=== PATIENT | female | born 1970 | race Caucasian/White ===

== ENCOUNTER 2017-01-10 18:20 | Emergency (ER) | payer OTHER ==
[~2017-01-10] VITALS: Ht 172.7 cm; Wt 59.0 kg
[~2017-01-10 18:20] MED LIST: GABA600T PO; LAMO100 PO; LURA40 PO; TRAZ100T6 PO; ZOLO100T PO
[2017-01-10 18:22] VITALS: BP 125/77; PULSE 77; RESP 20; TEMP 99.2; O2SAT 99
[2017-01-10] MEDS ORDERED: CLINDAMYCIN 150 MG CAP PO ONE (19:00)
[2017-01-10] MEDS ORDERED: ACETAMINOPHEN/HYDROcodone 325 MG/5 MG TAB PO ONE (19:00)
--- NOTE | 2017-01-10 19:00 | PD ---
HPI Chief Complaint: Oral / Dental Pain or Problem Time Seen by Provider: 18:46 Travel History International Travel<30 days: No Contact w/Intl Traveler<30days: No Traveled to known affect area: No History of Present Illness HPI 46-year-old female presents to the emergency department for evaluation of dental pain that started yesterday. She states she has had some intermittent pain free while, but the pain worsened yesterday. She states that she popped an abscess in the back of her mouth. Patient denies any fevers or chills. She reports history of depression and anemia. She is currently on Zoloft. She denies any other complaints at this time. PFS Past Medical History Anemia: Yes Anxiety: Yes Depression: Yes Diminished Hearing: No Gastrointestinal Disorders: Yes GERD: Yes Psychiatric: Yes Respiratory: Yes ?: Not Menopausal: No : 6 Para: 5 Miscarriage: 1 : 1 Ectopic : No Ovarian Cysts: No Tubal Ligation: Yes (2008) Past Surgical History Abdominal Surgery: Yes (GASTRIC BYPASS-2006; ABD HERNIA) Cholecystectomy: Yes Hysterectomy: No Other Surgery: Yes (BREAST AUGMENTATION AND ABDOMINOPLASTY) Social History Alcohol Use: No Tobacco Use: Yes (1/2 PK/DAY) Substance Use: No Allergies-Medications (Allergen,Severity, Reaction): Coded Allergies: erythromycin base (Unverified Allergy, Severe, CHEST PAIN, SOB, 01/05/17) codeine (Unverified Adverse Reaction, Severe, N/V, 01/05/17) Reported Meds & Prescriptions Reported Meds & Active Scripts Active Gabapentin 600 Mg Tab 1,200 Mg PO TID Reported Trazodone (Trazodone HCl) 100 Mg Tablet 200 Mg PO HS Lamictal (Lamotrigine) 100 Mg Tab 100 Mg PO DAILY Zoloft (Sertraline HCl) 100 Mg Tab 200 Mg PO DAILY Latuda (Lurasidone) 40 Mg Tab 40 Mg PO DAILY Review of Systems Except as stated in HPI: all other systems reviewed are Neg Physical Exam Narrative GENERAL: Well-nourished, well-developed female patient, ambulatory. Afebrile. SKIN: Focused skin assessment warm/dry. HEAD: Normocephalic. Atraumatic. No facial swelling noted. ENT: Mucosa pink and moist. No erythema or exudates. No uvular edema. No uvular , palatal, or tonsillar deviation. Airway patent. Nasal turbinates appear normal without nasal blood, purulent drainage or septal hematoma. Bilateral tympanic membranes are clear without erythema or perforation. Patient has tenderness to back right upper gumline. No obvious fluctuance or drainage. No trismus. No Tommy angina. EYES: No scleral icterus. No injection or drainage. NECK: Supple, trachea midline. No JVD or lymphadenopathy. CARDIOVASCULAR: Regular rate and rhythm without murmurs, gallops, or rubs. RESPIRATORY: Breath sounds equal bilaterally. No accessory muscle use. Lungs sounds are clear to auscultation. GASTROINTESTINAL: Abdomen soft, non-tender, nondistended. MUSCULOSKELETAL: No cyanosis, or edema. BACK: Nontender without obvious deformity. No CVA tenderness. Data Data Last Documented VS Vital Signs Date Time Temp Pulse Resp B/P (MAP) Pulse Ox O2 Delivery O2 Flow Rate FiO2 01/10/17 18:22 99.2 77 20 125/77 (93) 99 Room Air Orders Orders Acetamin-Hydrocod 325-5 Mg ([place] 5-325 (01/10/17 19:00) Clindamycin (Cleocin) (01/10/17 19:00) [facility] Medical Decision Making Medical Screen Exam Complete: Yes Emergency Medical Condition: Yes Medical Record Reviewed: Yes Differential Diagnosis Dental abscess versus gingivitis versus dental caries Narrative Course 46-year-old female presents to the emergency department for evaluation of dental pain. Patient will be given Lortab 5/325 mg of clindamycin 300 mg by mouth. She'll be discharged with a prescription for ibuprofen and clindamycin. She states her is here to take her home. Patient is instructed to follow-up with a dentist. She is return here for any acute worsening of symptoms. She verbalizes agreement and understanding. Diagnosis Primary Impression: Dental abscess Referrals: Dentist call for appointment Patient Instructions: Dental Abscess (ED), General Instructions, Narcotic given in the ED Additional Instructions: Take antibiotic as instructed until gone. Ibuprofen as instructed as needed with food for pain. Peridex oral solution as directed. Follow-up with a dentist Return to the emergency department for any acute worsening of symptoms. Med/Other Pt SpecificInfo: Prescription(s) given Scripts Chlorhexidine Gluconate (Mouth) Liq (Peridex Liq) 0.12% Soln 15 ML SWISH-SPIT BID, #473 ML 0 Refills Prov: Trinity Medina 01/10/17 Clindamycin (Clindamycin) 150 Mg Cap 300 MG PO Q6H for Infection for 10 Days, CAP 0 Refills Prov: Trinity Medina 01/10/17 Ibuprofen (Ibuprofen) 600 Mg Tab 600 MG PO TID Y for PAIN SCALE 1 TO 10, #21 TAB 0 Refills Prov: Trinity Medina 01/10/17 Disposition: 01 DISCHARGE HOME Condition: Stable Trinity Medina Jan 10, 2017 19:00
[2017-01-10] MEDS ORDERED: CLIN1CAP5 PO (19:04)
[2017-01-10] MEDS ORDERED: IBUP-232 PO (19:04)
[2017-01-10] MEDS ORDERED: PERI0.126 SWISH-SPIT (19:05)
[2017-03-05] MEDS ORDERED: GABA600T PO (18:55)
== END 2017-01-10 19:28 | disposition home or self-care (01) ==
LOC: NEPD 18:20
DX: K04.7 Periapical abscess without sinus (principal); F17.200 Nicotine dependence, unspecified, uncomplicated
CPT/HCPCS: 99283

== ENCOUNTER 2017-02-10 17:51 | Emergency (ER) | payer OTHER ==
[~2017-02-10] VITALS: Ht 172.7 cm; Wt 63.0 kg
[~2017-02-10 17:51] MED LIST changes: +IBUP-232 PO
[2017-02-10 17:54] VITALS: BP 134/68; PULSE 62; RESP 18; TEMP 99.3; O2SAT 99
--- NOTE | 2017-02-10 18:00 | PD ---
HPI . dentalgia Chief Complaint: ENT Complaint Time Seen by Provider: 17:59 Travel History International Travel<30 days: No Contact w/Intl Traveler<30days: No Traveled to known affect area: No History of Present Illness HPI 46 year old female here with complaints of right upper wisdom tooth pain. Patient said she had extraction on February 06 and needs pain medication. She tells me that she has been dealing with pain all day, and decided to call the oral surgeon and was told that it's after hours and they will not fill any medications for her. She is taking antibiotics. She denies any fever or chills. Patient says she received 5 percocets on 02/06. PFSH Past Medical History Anemia: Yes Anxiety: Yes Depression: Yes Diminished Hearing: No Gastrointestinal Disorders: Yes GERD: Yes Psychiatric: Yes Respiratory: Yes ?: Unknown LMP: 817 Menopausal: No : 6 Para: 5 Miscarriage: 1 : 1 Ectopic : No Ovarian Cysts: No Tubal Ligation: Yes (2008) Past Surgical History Abdominal Surgery: Yes (GASTRIC BYPASS-2006; ABD HERNIA) Cholecystectomy: Yes Hysterectomy: No Other Surgery: Yes (BREAST AUGMENTATION AND ABDOMINOPLASTY) Social History Alcohol Use: No Tobacco Use: Yes (1/2 PK/DAY) Substance Use: No Allergies-Medications (Allergen,Severity, Reaction): Coded Allergies: erythromycin base (Unverified Allergy, Severe, CHEST PAIN, SOB, 02/02/17) codeine (Unverified Adverse Reaction, Severe, N/V, 02/02/17) Reported Meds & Prescriptions Reported Meds & Active Scripts Active Ibuprofen 600 Mg Tab 600 Mg PO TID PRN Gabapentin 600 Mg Tab 1,200 Mg PO TID Reported Trazodone (Trazodone HCl) 100 Mg Tablet 200 Mg PO HS Lamictal (Lamotrigine) 100 Mg Tab 100 Mg PO DAILY Zoloft (Sertraline HCl) 100 Mg Tab 200 Mg PO DAILY Latuda (Lurasidone) 40 Mg Tab 40 Mg PO DAILY Review of Systems General / Constitutional: No: Fever Eyes: No: Visual changes HENT: Positive: Dental Difficulties, No: Headaches Cardiovascular: No: Chest Pain or Discomfort Respiratory: No: Shortness of Breath Gastrointestinal: No: Abdominal Pain Genitourinary: No: Dysuria Musculoskeletal: No: Pain Skin: No Rash Neurologic: No: Weakness Psychiatric: No: Depression Endocrine: No: Polydipsia Hematologic/Lymphatic: No: Easy Bruising Physical Exam Narrative GENERAL: AAO x 3, no acute distress, Well-nourished, well-developed patient. SKIN: Warm and dry. No visible rashes or bruising. HEAD: Normocephalic and atraumatic. EYES: No scleral icterus. No injection or drainage. ENT: No nasal drainage noted. Mucous membranes pink. Airway patent. no appreciative dental abnormality NECK: Supple, trachea midline. No JVD. CARDIOVASCULAR: Regular rate and rhythm without murmurs, gallops, or rubs. RESPIRATORY: Breath sounds equal bilaterally. No accessory muscle use. No rhonchi or rales. GASTROINTESTINAL: visual inspection normal EXTREMITIES: No cyanosis or edema. BACK: No obvious deformity. NEURO: CN II-12 intact, PSYCH: AAO x 3, normal affect. Data Data Last Documented VS Vital Signs Date Time Temp Pulse Resp B/P (MAP) Pulse Ox O2 Delivery O2 Flow Rate FiO2 02/10/17 17:54 99.3 62 18 134/68 (90) 99 MDM Medical Decision Making Medical Screen Exam Complete: Yes Emergency Medical Condition: No Medical Record Reviewed: Yes Differential Diagnosis dentalgia, drug seeking behavior, opiate addiction Narrative Course A medical screening exam was performed: At the time of evaluation the presenting medical condition was determined not to be of an emergent nature. The patient was given the option of receiving additional care, but declined. Patient was given options for additional community resources from which to obtain care. The Patient Has Been advised to seek medical attention for their presenting complaint. The patient has been advised to return to the ER at any time if an emergent condition develops. I looked patient up in [facility] and she has filled multiple prescriptions for narcotic pain medication from different providers in a limited amount of time. I explained to her that I will not be able to fill her medications. Advised to contact oral surgeon. Diagnosis Primary Impression: Encounter for medical screening examination Condition: Marie Arroyo Feb 10, 2017 18:00
[2017-03-05] MEDS ORDERED: GABA600T PO (18:55)
== END 2017-02-10 18:12 | disposition left against medical advice (07) ==
LOC: NEPD 17:51
DX: K08.89 Other specified disorders of teeth and supporting structures (principal); F41.9 Anxiety disorder, unspecified; K21.9 Gastro-esophageal reflux disease without esophagitis; D64.9 Anemia, unspecified
CPT/HCPCS: 99281

== ENCOUNTER 2017-03-31 16:53 | Emergency (ER) | payer OTHER ==
[~2017-03-31 16:53] MED LIST changes: +BENZ100 PO; -IBUP-232 PO; +LEVO750T3 PO; +NAPR500T2 PO; +OXYC1TAB63 PO; +PRED50 PO; +TRAZ100T10 PO; -TRAZ100T6 PO; +VARE1PAK3 PO; +VARE1PAK5 PO
[2017-03-31 16:56] VITALS: BP 110/78; PULSE 65; RESP 16; TEMP 98.4; O2SAT 97
[2017-03-31 18:48] LABS: AUTOMATED NEUTROPHIL # 5.9 TH/MM3 (1.8-7.7); BASOPHIL % 0.4 % (0.0-2.0); EOSINOPHIL # 0.1 TH/MM3 (0-0.4); EOSINOPHIL % 0.8 % (0.0-4.0); HEMATOCRIT 36.9 % (35.0-46.0); LYMPH % 23.9 % (9.0-44.0); LYMPHOCYTE # 2.1 TH/MM3 (1.0-4.8); MEAN CELL VOLUME 86.2 FL (80.0-100.0); MEAN CORPUSCULAR HEMOGLOBIN 28.6 PG (27.0-34.0); MEAN CORPUSCULAR HGB CONC 33.2 % (32.0-36.0); MONO % 6.7 % (0.0-8.0); NEUT % 68.2 % (16.0-70.0); PLATELET COUNT 289 TH/MM3 (150-450); RED BLOOD COUNT 4.29 MIL/MM3 (4.00-5.30); RED CELL DISTRIBUTION WIDTH 23.4 % (11.6-17.2); WHITE BLOOD COUNT 8.7 TH/MM3 (4.0-11.0)
--- NOTE | 2017-03-31 18:50 | PD ---
HPI Chief Complaint: Abnormal Results Time Seen by Provider: 18:50 Travel History International Travel<30 days: No Contact w/Intl Traveler<30days: No Traveled to known affect area: No History of Present Illness HPI PT HAS HISTORY OF ANEMIA; GETS TRANSFUSIONS BY DR NINA. WAS HOSPITALIZED FOR A PNEUMONIA EARLIER THIS MONTH AND HAS NOT HAD A TRANSFUSION IS SUPPOSED TO HAVE ABLASION FOR UTERINE BLEEDING THIS WEEK AND PT FEELS LIKE HER BLOOD COUNT MAY BE LOW. PT WITH SHORTNESS OF BREATH AND PAIN WITH INSPIRATION SENSATION OF LIGHTHEADEDNESS AND FEELS TIRED PFSH Past Medical History Anemia: Yes Anxiety: Yes Depression: Yes Diminished Hearing: No Gastrointestinal Disorders: Yes GERD: Yes Psychiatric: Yes Respiratory: Yes Menopausal: No : 6 Para: 5 Miscarriage: 1 : 1 Ectopic : No Ovarian Cysts: No Tubal Ligation: Yes (2008) Past Surgical History Abdominal Surgery: Yes (GASTRIC BYPASS-2006; ABD HERNIA) Cholecystectomy: Yes Hysterectomy: No Other Surgery: Yes (BREAST AUGMENTATION AND ABDOMINOPLASTY) Social History Alcohol Use: No Tobacco Use: Yes (1 PK/DAY) Substance Use: No Allergies-Medications (Allergen,Severity, Reaction): Coded Allergies: erythromycin base (Unverified Allergy, Severe, CHEST PAIN, SOB, 03/24/17) codeine (Unverified Adverse Reaction, Severe, N/V, 03/24/17) Reported Meds & Prescriptions Reported Meds & Active Scripts Active Tessalon Perles (Benzonatate) 100 Mg Cap 200 Mg PO TID PRN Oxycodone-Acetaminophen 5-325 mg Tab 1 Tab PO Q6H PRN Naproxen 500 Mg Tab 500 Mg PO BID Prednisone 50 Mg Tab 50 Mg PO DAILY Chantix Continuing Month Dago (Varenicline) 1 Mg Dago 1 Mg PO BIDPC Chantix Starting Month Dago (Varenicline) 0.5 mg X 11 & 1 mg X 42 Pack 1 Tab PO DIRECTED Gabapentin 600 Mg Tab 1,200 Mg PO TID Reported Levofloxacin 750 Mg Tablet 750 Mg PO DAILY Trazodone (Trazodone HCl) 100 Mg Tablet 200 Mg PO HS Lamictal (Lamotrigine) 100 Mg Tab 100 Mg PO DAILY Zoloft (Sertraline HCl) 100 Mg Tab 200 Mg PO DAILY Latuda (Lurasidone) 40 Mg Tab 40 Mg PO DAILY Review of Systems Except as stated in HPI: all other systems reviewed are Neg Physical Exam Narrative GENERAL: Well-nourished, well-developed female patient, ambulatory and in no acute distress SKIN: Focused skin assessment warm/dry. HEAD: Normocephalic. EYES: No scleral icterus. No injection or drainage. NECK: Supple, trachea midline CARDIOVASCULAR: Regular rate RESPIRATORY: No accessory muscle use. GASTROINTESTINAL: Abdomen nondistended. MUSCULOSKELETAL: No cyanosis, or edema. BACK: without obvious deformity. Data Data Last Documented VS Vital Signs Date Time Temp Pulse Resp B/P (MAP) Pulse Ox O2 Delivery O2 Flow Rate FiO2 03/31/17 16:56 98.4 65 16 110/78 (89) 97 Orders Orders Complete Blood Count With Diff (03/31/17 17:23) Basic Metabolic Panel (Bmp) (03/31/17 17:23) Labs Laboratory Tests Test 03/31/17 18:20 White Blood Count 8.7 TH/MM3 Red Blood Count 4.29 MIL/MM3 Hemoglobin 12.3 GM/DL Hematocrit 36.9 % Mean Corpuscular Volume 86.2 FL Mean Corpuscular Hemoglobin 28.6 PG Mean Corpuscular Hemoglobin Concent 33.2 % Red Cell Distribution Width 23.4 % Platelet Count 289 TH/MM3 Mean Platelet Volume 7.7 FL Neutrophils (%) (Auto) 68.2 % Lymphocytes (%) (Auto) 23.9 % Monocytes (%) (Auto) 6.7 % Eosinophils (%) (Auto) 0.8 % Basophils (%) (Auto) 0.4 % Neutrophils # (Auto) 5.9 TH/MM3 Lymphocytes # (Auto) 2.1 TH/MM3 Monocytes # (Auto) 0.6 TH/MM3 Eosinophils # (Auto) 0.1 TH/MM3 Basophils # (Auto) 0.0 TH/MM3 CBC Comment AUTO DIFF Differential Comment FINAL DIFF MANUAL Platelet Estimate NORMAL Platelet Morphology Comment NORMAL Ovalocytes 1+ Acanthocytes OCC Blood Urea Nitrogen 14 MG/DL Creatinine 0.96 MG/DL Random Glucose 86 MG/DL Calcium Level 8.5 MG/DL Sodium Level 135 MEQ/L Potassium Level 4.0 MEQ/L Chloride Level 100 MEQ/L Carbon Dioxide Level 29.9 MEQ/L Anion Gap 5 MEQ/L Estimat Glomerular Filtration Rate 62 ML/MIN MDM Medical Decision Making Medical Screen Exam Complete: Yes Emergency Medical Condition: Yes Medical Record Reviewed: Yes Differential Diagnosis Anemia versus pneumonia versus costochondritis Narrative Course AMA: The risks of leaving against medical advice without further evaluation treatment were discussed with the patient. These risks include cardiac dysfunction, cardiac dysrhythmia, possible heart attack, possible stroke or . The patient indicated understanding of these risks and appeared to have the capacity to make this decision. Diagnosis Primary Impression: Fatigue Qualified Codes: R53.83 - Other fatigue Disposition: 07 AGAINST MEDICAL ADVICE Condition: Stable Kelley Clark Mar 31, 2017 18:50
[2017-03-31 18:56] LABS: HEMO FLAGS AUTO DIFF
[2017-03-31 18:58] LABS: BICARBONATE 29.9 MEQ/L (21.0-32.0)
[2017-03-31 20:14] LABS: ACANTHOCYTES OCC (NORMAL); OVALOCYTES 1+ (NORMAL); PLATELET ESTIMATE SMEAR NORMAL (NORMAL); PLATELET MORPHOLOGY NORMAL (NORMAL); SCAN/DIFF FINAL DIFF MANUAL
== END 2017-03-31 18:50 | disposition left against medical advice (07) ==
LOC: NED 18:45
DX: R53.83 Other fatigue (principal); R06.02 Shortness of breath; R42 Dizziness and giddiness; D64.9 Anemia, unspecified; F41.9 Anxiety disorder, unspecified; F32.9 Major depressive disorder, single episode, unspecified; K21.9 Gastro-esophageal reflux disease without esophagitis; F17.200 Nicotine dependence, unspecified, uncomplicated; Z79.899 Other long term (current) drug therapy
CPT/HCPCS: 80048; 85007; 85027; 99283

== ENCOUNTER 2018-02-17 17:31 | Observation (INO) ==
[2018-02-17] MEDS ORDERED: Ketorolac Inj 30 MG/ML (IVP) Vial IV.PUSH ONE (18:43)
[2018-02-17 19:28] LABS: Baso % (Auto) 0.8 % (0.0-2.0); Eos # (Auto) 0.1 th/mm3 (0.0-0.4); Eos % (Auto) 2.4 % (0.0-4.0); Hematocrit 39.4 % (35.0-46.0); Hemoglobin 13.6 gm/dL (11.6-15.3); Lymph # (Auto) 1.6 th/mm3 (1.0-4.8); Lymph % (Auto) 29.9 % (9.0-44.0); Mean Corpuscular HGB Conc 34.5 % (32.0-36.0); Mean Corpuscular Hemoglobin 33.9 pg (27.0-34.0); Mean Corpuscular Volume 98.2 fL (80.0-100.0); Mean Platelet Volume 8.4 fL (7.0-11.0); Mono # (Auto) 0.5 th/mm3 (0.0-0.9); Mono % (Auto) 8.7 % (0.0-8.0); Neut # (Auto) 3.3 th/mm3 (1.8-7.7); Neut % (Auto) 58.2 % (16.0-70.0); Platelet Count 220 th/mm3 (150-450); Red Blood Count 4.01 mil/mm3 (4.00-5.30); Red Cell Distribution Width 11.9 % (11.6-17.2); White Blood Count 5.5 th/mm3 (4.0-11.0)
[2018-02-17 19:32] VITALS: RESP 16
--- NOTE | 2018-02-17 19:35 | CT ---
EXAM DATE: 02/17/2018 6:55 PM EDT AGE/SEX: 48 years / Female INDICATIONS: Left chest pain. History of pneumonia. CLINICAL DATA: This is the patient's initial encounter. Patient reports that signs and symptoms have been present for 1 week and indicates a pain score of 4/10. MEDICAL/SURGICAL HISTORY: None. Cholecystectomy. Gastric bypass. RADIATION DOSE: 6.22 CTDI (mGy) COMPARISON: [facility], CT ABDOMEN & PELVIS W CONTRAST, 09/10/2011. . TECHNIQUE: Multiple contiguous axial images were obtained through the chest without contrast. Image s were obtained in suspended respiration using multiple row detector helical technique. Using automa gui exposure control and adjustment of the mA and/or kV according to patient size, radiation dose was kept as low as reasonably achievable to obtain optimal diagnostic quality images. DICOM format imag e data is available electronically for review and comparison. FINDINGS: There is trace atelectasis and scarring of the lingular division of the left upper lobe. Mild tree-in -bud type infiltrates seen laterally in the right and left midlungs. The lungs otherwise appear clear . No pleural effusion. No pneumothorax. Noncontrast appearance of the heart and mediastinum within normal limits. No lymphadenopathy demonstr ated. No acute bony abnormality seen. CONCLUSION: 1. Trace lingular atelectasis and scarring. 2. Minimal infectious or inflammatory appearing tree-in-bud type parenchymal opacities of the bilate ral mid lungs. 3. No lymphadenopathy demonstrated. Electronically signed by: Williams Hong MD 02/17/2018 7:34 PM EDT
[2018-02-17 19:36] LABS: Chloride 103 meq/L (98-107); Sodium 138 meq/L (136-145)
[2018-02-17 19:39] LABS: Calcium 8.2 mg/dL (8.5-10.1)
[2018-02-17 19:40] LABS: Albumin 3.7 g/dL (3.4-5.0); Anion Gap 8 meq/L (5-15); Blood Urea Nitrogen 14 mg/dL (7-18); Carbon Dioxide 27.5 meq/L (21.0-32.0); Glucose,Random 95 mg/dL (74-106)
[2018-02-17 19:43] LABS: Alanine Aminotransferase 63 U/L (10-53); Aspartate Aminotransferase 29 U/L (15-37); Glomerular Filtration Rate 72 mL/min (>89)
[2018-02-17 19:44] LABS: Total Protein 6.7 g/dL (6.4-8.2)
[2018-02-17 19:45] LABS: Alkaline Phosphatase 119 U/L (45-117)
--- NOTE | 2018-02-17 20:30 | ED ---
HPI General Chief complaint: Respiratory Symptoms Stated complaint: Pain Around Ribs Time Seen by Provider: 02/17/18 18:16 Source: patient Mode of arrival: ambulatory Limitations: no limitations History of Present Illness HPI narrative: Patient is a 48-year-old female who comes in complaining of pain to her lower chest. This is her third visit to the hospital for this. She was seen here a little over 2 weeks ago and was discharged with Augmentin. She says she went to an outside hospital Thursday and was told she had bilateral pneumonia and was discharged with azithromycin. She says that she completed the antibiotics and her pain seems to be worse. She says she has had this pain in the past associated with pneumonia, so she is worried that the pneumonia is gotten worse. She denies fever chills. She has had a cough. She says she has been taking ibuprofen and Motrin for the pain without relief. Severity is mild to moderate. Related Data Home Medications Medication Instructions Recorded Confirmed escitalopram oxalate [Lexapro] 20 mg PO DAILY 01/25/18 02/17/18 trazodone 50 mg PO DAILY 01/25/18 02/17/18 Previous Rx's Medication Instructions Recorded albuterol sulfate 2 inh INHALATION Q4H PRN #6.7 g 12/31/17 naproxen 500 mg PO Q12H PRN #14 tab 01/26/18 Allergies Allergy/AdvReac Type Severity Reaction Status Date / Time erythromycin base Allergy Severe CHEST Verified 02/17/18 18:06 PAIN, SOB codeine AdvReac Severe N/V Verified 02/17/18 18:06 Review of Systems ROS: all other systems reviewed are negative Constitutional Denies chills and Denies fever(s) ENT Denies dizziness Cardiovascular Reports chest pain Respiratory Reports cough Gastrointestinal Denies nausea and Denies vomiting Musculoskeletal Denies myalgias and Denies arthralgias Integumentary/Breasts Denies rash and Denies wounds Neurologic Denies frequent falls, Denies focal weakness and Denies numbness [facility] Medical History Medical History Anemia (Acute) Cholecystectomy planned (Acute) Depression (Acute) History of bleeding ulcers (Acute) Hx of insomnia (Acute) Hx of iron deficiency (Acute) Pneumonia (Acute) Surgical History Surgical History History of mandibular surgery (Acute) Hx of breast augmentation (Acute) Hx of cholecystectomy (Acute) Hx of gastric bypass (Acute) Hx of hernia repair (Acute) Hx of tubal ligation (Acute) Social History Social History Substance History: No History of Abuse Second Hand Smoke Exposure: No Smoking Status: Current every day smoker Tobacco Type: Cigarettes How Often Do You Have a Drink Containing Alcohol: Never Recent Travel in [facility] within the Last 8 Weeks: No Recent Out of Country Travel within the Last 8 Weeks: No Immunization History Tetanus Immunization: >5 Years Hx Influenza Vaccine This Season: No Exam Narrative Exam Narrative: GENERAL: Awake and alert, no acute distress. SKIN: Focused skin assessment warm/dry. No wounds or signs of infection. HEAD: Atraumatic. Normocephalic. EYES: Pupils equal and round. No scleral icterus. ENT: Mucous membranes pink and moist. NECK: Trachea midline. No JVD. CARDIOVASCULAR: Regular rate and rhythm. No murmur appreciated. RESPIRATORY: No accessory muscle use. Wheezing at both lung bases. Breath sounds equal bilaterally. GASTROINTESTINAL: Abdomen soft, non-tender, nondistended. MUSCULOSKELETAL: No obvious deformities. No clubbing. No cyanosis. No edema. NEUROLOGICAL: Awake and alert. No obvious cranial nerve deficits. Motor grossly within normal limits. Normal speech. PSYCHIATRIC: Appropriate mood and affect; insight and judgment normal. Course Initial Documented Vital Signs Temperature 99.3 F 02/17/18 18:02 Pulse Rate 64 02/17/18 18:02 Respiratory Rate 18 02/17/18 18:02 Blood Pressure 113/60 02/17/18 18:02 Pulse Oximetry 99 02/17/18 18:02 Last Documented Vital Signs Temperature 99.3 F 02/17/18 18:02 Pulse Rate 53 L 02/17/18 20:51 Respiratory Rate 16 02/17/18 20:51 Blood Pressure 113/71 02/17/18 20:51 Pulse Oximetry 99 02/17/18 20:51 Medical Decision Making MDM Narrative Medical decision making narrative: Patient is a 48-year-old female who comes in complaining of chest pain. She says it feels like when she has pneumonia. IV established, labs sent. Labs show no acute abnormal. CT of the chest shows bilateral tree in bud infiltrates. Patient has had 2 rounds of oral antibiotics at home. Thus I feel she would benefit from admission. Given Rocephin and Levaquin. Placed in observation for further management. Medical Screen Exam Complete: Yes Emergency Medical Condition: Yes Differential Diagnosis Differential Diagnosis: Pneumonia versus costochondritis versus URI Medical Records Medical records reviewed: Yes I reviewed the patient's medical records. Lab Data Lab results reviewed: Yes I reviewed the patient's lab results. Result diagrams: 02/17/18 19:24 02/17/18 19:24 Lab Results 02/17/18 02/17/18 02/17/18 Range/Units 19:24 19:24 19:24 CBC w Diff Auto diff final WBC 5.5 (4.0-11.0) th/mm3 RBC 4.01 (4.00-5.30) mil/mm3 Hgb 13.6 (11.6-15.3) gm/dL Hct 39.4 (35.0-46.0) % MCV 98.2 (80.0-100.0) fL MCH 33.9 (27.0-34.0) pg MCHC 34.5 (32.0-36.0) % RDW 11.9 (11.6-17.2) % Plt Count 220 (150-450) th/mm3 MPV 8.4 (7.0-11.0) fL Neut % (Auto) 58.2 (16.0-70.0) % Lymph % (Auto) 29.9 (9.0-44.0) % Boundary % (Auto) 8.7 H (0.0-8.0) % Eos % (Auto) 2.4 (0.0-4.0) % Baso % (Auto) 0.8 (0.0-2.0) % Neut # (Auto) 3.3 (1.8-7.7) th/mm3 Lymph # (Auto) 1.6 (1.0-4.8) th/mm3 Boundary # (Auto) 0.5 (0.0-0.9) th/mm3 Eos # (Auto) 0.1 (0.0-0.4) th/mm3 Baso # (Auto) 0.0 (0.0-0.2) th/mm3 WBC Differential . Differential Comment . Sodium 138 (136-145) meq/L Potassium 4.0 (3.5-5.1) meq/L Chloride 103 (98-107) meq/L Carbon Dioxide 27.5 (21.0-32.0) meq/L Anion Gap 8 (5-15) meq/L BUN 14 (7-18) mg/dL Creatinine 0.84 (0.50-1.00) mg/dL Estimated GFR 72 L (>89) mL/min Random Glucose 95 (74-106) mg/dL Calcium 8.2 L (8.5-10.1) mg/dL Total Bilirubin 0.3 (0.2-1.0) mg/dL AST 29 (15-37) U/L ALT 63 H (10-53) U/L Alkaline Phosphatase 119 H (45-117) U/L Troponin I Less than 0.02 L (0.02-0.05) ng/mL Total Protein 6.7 (6.4-8.2) g/dL Albumin 3.7 (3.4-5.0) g/dL Lipase 155 (73-393) U/L Imaging Data Radiologist's impression: Chest CT 02/17/18 18:43 CONCLUSION: 1. Trace lingular atelectasis and scarring. 2. Minimal infectious or inflammatory appearing tree-in-bud type parenchymal opacities of the bilateral mid lungs. 3. No lymphadenopathy demonstrated. ECG Data EKG Prior to Arrival: No Attestation: I personally reviewed and interpreted this ECG as follows: Interpretation: ECG shows sinus bradycardia at a rate of 51, no ST elevation or depression, normal intervals Discharge Plan Discharge Disposition Patient Disposition: 30 Still Patient Discharge Condition Condition: Stable Discharge Details Diagnosis: Pneumonia Physicians Team ED Provider: Fátima Ponce Primary Care Provider: Javy Bruno Attending Provider: Ga Casanova Discharge Interventions Interventions: Vital Signs Last Done: 02/17/18 19:31 Status ED Status: Admitted Observation Patient
[2018-02-17] MEDS ORDERED: Ketorolac Inj 30 MG/ML (IVP) Vial IV.PUSH PRN (20:36)
[2018-02-17] MEDS ORDERED: Tuberculin PPD 5 UNITS/0.1 ML Syringe I-DERMAL ONE (21:00)
[2018-02-17] MEDS ORDERED: Temazepam 15 MG Capsule PO PRN (21:00)
[2018-02-17] MEDS ORDERED: traZODone 50 MG Tablet PO SCH ×2 (21:00→23:30)
[2018-02-17] MEDS: Heparin - SQ 10,000 UNITS/ML Vial SQ SCH (21:24)
[2018-02-18 07:03] LABS: Chloride 108 meq/L (98-107); Sodium 143 meq/L (136-145)
[2018-02-18 07:07] LABS: Calcium 7.8 mg/dL (8.5-10.1)
[2018-02-18 07:12] LABS: Alanine Aminotransferase 52 U/L (10-53); Anion Gap 6 meq/L (5-15); Aspartate Aminotransferase 22 U/L (15-37); Blood Urea Nitrogen 18 mg/dL (7-18); Carbon Dioxide 28.7 meq/L (21.0-32.0); Glomerular Filtration Rate 73 mL/min (>89); Glucose,Random 85 mg/dL (74-106)
[2018-02-18 07:27] LABS: Alkaline Phosphatase 108 U/L (45-117); Total Protein 5.9 g/dL (6.4-8.2)
--- NOTE | 2018-02-18 08:03 | P.HP ---
History of Present Illness Service: [facility] adult med Primary Care Physician: Javy Bruno Chief Complaint: cough, chest pain with deep inspiration History of Present Illness: Patient is a 48-year-old female chronic smoker with questionable history of COPD who comes in complaining of pain to her lower chest. This is her third visit to the hospital for this recently. She was seen here a little over 2 weeks ago and was discharged with Augmentin. She says she went to an outside hospital this past and was told she had bilateral pneumonia and was discharged with azithromycin. She reports that the azithromycin actually helped but when her course was done symptoms returned. She says that she completed the antibiotics and her pain seems to be worse. She says she has had this pain in the past associated with pneumonia, so she is worried that the pneumonia is gotten worse. She reports that she has had an episode of pneumonia every year for approximately the last 7 years with multiple episodes requiring admission. She reports that she had to stay in the hospital up to 1 week for sepsis in the past from pneumonia. She reports she has not seen an outside principal embedded software engineer. She has had no hemoptysis or hematemesis. She denies any night sweats or recent weight loss. 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 She has not traveled recently and has not been in contact with anyone with a known infectious disease specifically tuberculosis. She denies fever chills. She has had a cough. She says she has been taking ibuprofen and Motrin for the pain without relief. Severity is mild to moderate. It is noted the patient is in recovery from chronic opiate use. She had previously engaged in IV drug abuse but has not done that in several years. Her drug of choice for IV drugs was Dilaudid. Her last use was apparently over a year ago and she attends Narcotics Anonymous meetings daily. She has been afebrile here with good oxygen saturation maintenance on room air. CT chest did reveal some tree-in- bud appearance inflammatory versus infectious changes in bilateral mid lungs. There was no significant lymphadenopathy noted on CT scan. SH She smokes 1 pack/day of cigarettes and has done so for approximately 30 years No alcohol in several years but previously did drink heavily at times Has history of substance abuse and previously had been on various opiates and cocaine. She had also used IV Dilaudid in the past. She reportedly has been in recovery for over the last year and has not done any illicit drugs at that time. She does attend Narcotics Anonymous regularly. 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 ALL: She has no true drug allergies but has had some difficulties with erythromycin and some nausea with codeine. She is also had trouble with GI upset on doxycycline. Notably she has tolerated azithromycin fine on several occasions including last week. - Diagnosis (1) Pneumonia (2) Substance abuse in remission (3) Bipolar 1 disorder, depressed, partial remission Review of Systems Constitutional: Denies anorexia, Denies body ache(s), Denies chills, Denies daytime sleepiness, Denies excessive sweating, Denies fatigue, Denies fever(s), Denies headache(s), Denies increased appetite, Denies lack of energy, Denies malaise, Denies night sweats, Denies weakness, Denies weight gain, Denies weight loss, Denies other Eyes: Denies blind spots, Denies blurry vision, Denies bulging eyes, Denies change in vision, Denies double vision, Denies discharge, Denies dry eyes, Denies floaters, Denies irritation, Denies itchy eyes, Denies loss of vision, Denies pain, Denies requires corrective lenses, Denies sensitivity to light, Denies other Ears, Nose, Mouth, and Throat: Denies abnormal hearing, Denies bleeding gums, Denies bad breath, Denies change in voice, Denies dental pain, Denies difficulty swallowing, Denies dizziness, Denies dry mouth, Denies ear discharge , Denies ear pain, Denies facial pain, Denies headache(s), Denies hearing loss, Denies hoarseness, Denies lip swelling, Denies nosebleed, Denies mouth lesions, Denies mouth pain, Denies nasal congestion, Denies nasal discharge, Denies nasal obstruction, Denies nasal trauma, Denies neck lump, Denies neck pain, Denies nose pain, Denies pain with swallowing, Denies poor balance, Denies post nasal drip, Denies ringing in the ears, Denies sinus pain, Denies sinus pressure , Denies sore throat, Denies throat swelling, Denies tongue swelling, Denies other Cardiovascular: Reports chest pain, Reports chest pain at rest, Denies chest pain with activity, Denies excessive sweating, Denies fainting, Denies fast heart rate, Denies foot swelling, Denies generalized swelling, Denies irregular heart rhythm, Denies leg pain with activity, Denies leg sores, Denies leg swelling, Denies lightheadedness, Denies radiating jaw, neck or arm pain, Denies rapid, pounding, or irregular heartbeat, Denies shortness of breath, Denies shortness of breath with activity, Denies shortness of breath when lying down, Denies shortness of breath causing sudden awakening, Denies slow heart rate, Denies other Respiratory: Reports chest congestion, Reports cough, Reports pain on inspiration, Reports pain with cough, Denies change in phlegm color, Denies coughing up blood, Denies excessive phlegm production, Denies shortness of breath, Denies shortness of breath with activity, Denies snoring, Denies stridor , Denies wheezing, Denies other Gastrointestinal: Denies abdominal pain, Denies belching, Denies black, tarry stools, Denies bloating, Denies bright, red blood in stools, Denies change in bowel habits, Denies constant urge to pass stool, Denies change in stools, Denies coffee ground vomit, Denies constipation, Denies cramping, Denies difficulty swallowing, Denies excessive passing of gas, Denies feeling full early, Denies heartburn, Denies incontinent of stools, Denies loose stools, Denies nausea, Denies pain with swallowing, Denies vomiting, Denies vomiting blood, Denies other Skin/Breast: Denies acne, Denies bleeding lesions, Denies boil, Denies breast swelling, Denies breast skin changes, Denies breast pain, Denies breast lump, Denies change in breast shape, Denies change in hair, Denies change in skin color, Denies changing lesions, Denies dry skin, Denies excessive hair growth, Denies hair loss, Denies itching, Denies lesions, Denies nail changes, Denies new lesions, Denies nipple discharge, Denies non-healing lesions, Denies redness , Denies sensitivity to light, Denies rash, Denies skin pain, Denies skin ulcer , Denies sores, Denies stretch hatch, Denies unusual bruising, Denies wounds, Denies yellowing of the skin, Denies other Neurologic: Denies abnormal hearing, Denies abnormal movements, Denies abnormal speech, Denies abnormal walking, Denies behavioral changes, Denies burning sensations, Denies confusion, Denies dizziness, Denies fainting, Denies frequent falls, Denies headache(s), Denies lack of coordination, Denies localized weakness, Denies loss of vision, Denies memory loss, Denies numbness, Denies other visual disturbances, Denies radiating pain, Denies restless legs, Denies convulsions, Denies seizure-like activity, Denies sensory deficit, Denies tingling, Denies tingling/numbness/burning sensations, Denies tremor(s), Denies unsteadiness, Denies weakness, Denies other Psychiatric: Reports anxiety Allergic/Immunologic: Reports GI upset with certain foods PMFSH - History History Provided By: Patient - Medical History Medical History: Medical History (Last Updated 02/18/18 @ 07:59 by Ga Casanova MD, PhD) Bipolar 1 disorder, depressed, partial remission (Acute) Pneumonia (Acute) Anemia Depression History of bleeding ulcers Hx of insomnia Hx of iron deficiency - Surgical History Surgical History: Surgical History (Last Reviewed 02/17/18 @ 21:11 by Fátima Ponce MD) History of mandibular surgery Hx of breast augmentation Hx of cholecystectomy Hx of gastric bypass Hx of hernia repair Hx of tubal ligation - Family History Family History: Family History (Last Updated 02/18/18 @ 07:52 by Ga Casanova MD, PhD) Mother COPD (chronic obstructive pulmonary disease) - Tobacco History Second Hand Smoke Exposure: No Tobacco Use In Past 30 Days: Yes Smoking Status: Current every day smoker Tobacco Type: Cigarettes Cigarettes Per Day: 20 Years Smoked: 30 - Alcohol History How Often Do You Have a Drink Containing Alcohol: Monthly or less - Substance Use History Substance History: Past History - Travel History Recent Travel in the [place] Within the Last 8 Weeks: No Recent Travel Out of the Country Within the Last 8 Weeks: No - Immunization History Tetanus Immunization: >5 Years Hx Influenza Vaccine This Season: No Medications and Allergies Active Medications: Active Medications Albuterol (Duoneb Neb (Prn)) 1 ampul NEB Q4HR NEB PRN PRN Reason: wheeze, sob Doxycycline Hyclate (Vibratab) 100 mg PO BID [facility] Last Admin: 02/17/18 21:24 Dose: 100 mg Fluconazole (Diflucan) 200 mg PO DAILY [facility] Last Admin: 02/17/18 21:24 Dose: 200 mg Heparin Sodium (Porcine) (Heparin Inj) 5,000 units SQ Q12H [facility] Last Admin: 02/17/18 21:24 Dose: 5,000 units Ketorolac Tromethamine (Toradol Inj) 30 mg IV.PUSH Q6H PRN PRN Reason: pain level 3-10 Stop: 02/19/18 12:00 Skin Test Antigens (Skin Test Result) 1 each OTHER Q24H [facility] Stop: 02/20/18 21:01 Sodium Chloride (Ns Flush) 2 ml IV.FLUSH BID [facility] Last Admin: 02/17/18 23:35 Dose: 2 ml Sodium Chloride (Ns Flush) 2 ml IV.FLUSH PRN PRN PRN Reason: FLUSH AFTER USING IV ACCESS Temazepam (Restoril) 15 mg PO HS PRN PRN Reason: FOR SLEEP Tramadol HCl (Ultram) 50 mg PO Q6H PRN PRN Reason: PAIN 3-10 Last Admin: 02/17/18 22:53 Dose: 50 mg Trazodone HCl (Desyrel) 50 mg PO [facility] Allergies Allergy/AdvReac Type Severity Reaction Status Date / Time erythromycin base Allergy Severe CHEST Verified 02/17/18 18:06 PAIN, SOB codeine AdvReac Severe N/V Verified 02/17/18 18:06 Home Medications Medication Instructions Recorded Confirmed Type escitalopram oxalate [Lexapro] 20 mg PO DAILY 01/25/18 02/17/18 History trazodone 100 mg PO HS 01/25/18 02/18/18 History aripiprazole 10 mg PO DAILY 02/18/18 02/18/18 History gabapentin 1,200 mg PO TID 02/18/18 02/18/18 History lamotrigine 100 mg PO DAILY 02/18/18 02/18/18 History Exam Vital signs: Vital Signs 02/17/18 18:02 02/17/18 18:56 02/17/18 19:31 Temperature 99.3 F Pulse Rate 64 52 L 52 L Respiratory Rate 18 20 16 Blood Pressure 113/60 Pulse Oximetry 99 98 02/17/18 20:00 02/17/18 20:51 02/17/18 22:20 Temperature Pulse Rate 53 L Respiratory Rate 16 Blood Pressure 113/71 Pulse Oximetry 97 99 97 02/18/18 00:00 Temperature 97.5 F L Pulse Rate 52 L Respiratory Rate 16 Blood Pressure 107/55 L Pulse Oximetry 97 Intake & Output 02/17/18 02/18/18 02/18/18 18:59 06:59 18:59 Intake Total 650 / 650 Balance 650 / 650 Weight 60.5 kg 60.5 kg Intake: IV 250 / 250 Levaquin 750 mg Premix Inj 150 150 / 150 ML @ 100 mls/hr IV.SIG ONCE ONE Rx#:[id number] Rocephin Inj 1,000 MG In NS Inj 100 / 100 100 ML @ 200 mls/hr IV.SIG ONCE ONE Rx#:[id number] Oral 400 / 400 Other: # Voids 2 Narrative: GENERAL: Well-developed female, slightly anxious, alert and oriented and very pleasant. No acute distress. SKIN: Warm and dry. Multiple tattoos noted. Left forearm PPD with no reaction thus far HEAD: Atraumatic. Normocephalic. EYES: Pupils equal and round. No scleral icterus. No injection or drainage. ENT: No nasal bleeding or discharge. Mucous membranes pink and moist. NECK: Trachea midline. No JVD. CARDIOVASCULAR: Regular rate and rhythm. No murmur. RESPIRATORY: No accessory muscle use. Coarse breath sounds with expiratory wheezing and midlung bilaterally. Breath sounds equal bilaterally. Fair air movement. GASTROINTESTINAL: Abdomen soft, non-tender, nondistended. Hepatic and splenic margins not palpable. MUSCULOSKELETAL: Extremities without clubbing, cyanosis, or edema. No obvious deformities. NEUROLOGICAL: Awake and alert. No obvious cranial nerve deficits. Motor grossly within normal limits. Five out of 5 muscle strength in the arms and legs. Normal speech. PSYCHIATRIC: Appropriate mood and affect; insight and judgment normal. Slightly anxious Results - Labs CBC & Chem 7: 02/17/18 19:24 02/18/18 05:45 Labs: Laboratory Results - last 24 hr 02/17/18 02/17/18 02/17/18 19:24 19:24 19:24 CBC w Diff Auto diff final WBC 5.5 RBC 4.01 Hgb 13.6 Hct 39.4 MCV 98.2 MCH 33.9 MCHC 34.5 RDW 11.9 Plt Count 220 MPV 8.4 Neut % (Auto) 58.2 Lymph % (Auto) 29.9 [place] % (Auto) 8.7 H Eos % (Auto) 2.4 Baso % (Auto) 0.8 Neut # (Auto) 3.3 Lymph # (Auto) 1.6 [place] # (Auto) 0.5 Eos # (Auto) 0.1 Baso # (Auto) 0.0 WBC Differential . Differential Comment . Sodium 138 Potassium 4.0 Chloride 103 Carbon Dioxide 27.5 Anion Gap 8 BUN 14 Creatinine 0.84 Estimated GFR 72 L Random Glucose 95 Calcium 8.2 L Total Bilirubin 0.3 AST 29 ALT 63 H Alkaline Phosphatase 119 H Troponin I Less than 0.02 L C-Reactive Protein Total Protein 6.7 Albumin 3.7 Lipase 155 02/17/18 02/18/18 19:27 05:45 CBC w Diff WBC RBC Hgb Hct MCV MCH MCHC RDW Plt Count MPV Neut % (Auto) Lymph % (Auto) [place] % (Auto) Eos % (Auto) Baso % (Auto) Neut # (Auto) Lymph # (Auto) [place] # (Auto) Eos # (Auto) Baso # (Auto) WBC Differential Differential Comment Sodium 143 Potassium 4.0 Chloride 108 H Carbon Dioxide 28.7 Anion Gap 6 BUN 18 Creatinine 0.83 Estimated GFR 73 L Random Glucose 85 Calcium 7.8 L Total Bilirubin 0.3 AST 22 ALT 52 Alkaline Phosphatase 108 Troponin I C-Reactive Protein Less than 0.29 Total Protein 5.9 L D Albumin 3.0 L D Lipase - Imaging Impressions Chest CT 02/17/18 18:43 CONCLUSION: 1. Trace lingular atelectasis and scarring. 2. Minimal infectious or inflammatory appearing tree-in-bud type parenchymal opacities of the bilateral mid lungs. 3. No lymphadenopathy demonstrated. Caprini VTE Risk Assessment Caprini VTE Risk Assessment: No/Low Risk (score <= 1) Caprini Risk Assessment Model: Point Value = 1 Point Value = 2 Point Value = 3 Point Value = 5 Age 41-60 Minor surgery BMI > 25 kg/m2 Swollen legs Varicose veins or History of unexplained or recurrent spontaneous Oral contraceptives or hormone replacement Sepsis (< 1 month) Serious lung disease, including pneumonia (< 1 month) Abnormal pulmonary function Acute myocardial infarction Congestive heart failure (< 1 month) History of inflammatory bowel disease Medical patient at bed rest Age 61-74 Arthroscopic surgery Major open surgery (> 45 min) Laparoscopic surgery (> 45 min) Malignancy Confined to bed (> 72 hours) Immobilizing plaster cast Central venous access Age >= 75 History of VTE Family history of VTE Factor V Leiden Prothrombin [id number] Lupus anticoagulant Anticardiolipin antibodies Elevated serum homocysteine Heparin-induced thrombocytopenia Other congenital or acquired thrombophilia Stroke (< 1 month) Elective arthroplasty Hip, pelvis, or leg fracture Acute spinal cord injury (< 1 month) Prophylaxis Regimen: Total Risk Factor Score Risk Level Prophylaxis Regimen 0-1 Low Early ambulation 2 Moderate Order ONE of the following: *Sequential Compression Device (SCD) *Heparin 5000 units SQ BID 3-4 Higher Order ONE of the following medications: *Heparin 5000 units SQ TID *Enoxaparin/Lovenox 40 mg SQ daily (WT < 150 kg, CrCl > 30 mL/min) *Enoxaparin/Lovenox 30 mg SQ daily (WT < 150 kg, CrCl > 10-29 mL/min) *Enoxaparin/Lovenox 30 mg SQ BID (WT < 150 kg, CrCl > 30 mL/min) AND/OR *Sequential Compression Device (SCD) 5 or more Highest Order ONE of the following medications: *Heparin 5000 units SQ TID (Preferred with Epidurals) *Enoxaparin/Lovenox 40 mg SQ daily (WT < 150 kg, CrCl > 30 mL/min) *Enoxaparin/Lovenox 30 mg SQ daily (WT < 150 kg, CrCl > 10-29 mL/min) *Enoxaparin/Lovenox 30 mg SQ BID (WT < 150 kg, CrCl > 30 mL/min) AND *Sequential Compression Device (SCD) Assessment and Plan - Assessment (1) Pneumonia Code(s): J18.9 - Pneumonia, unspecified organism Status: Acute Plan: Seems to be a recurring issue this patient reports approximately 7 cases of pneumonia in the last 6-7 years with some requiring hospitalization. She does not appear toxic today. I do not strongly suspect tuberculosis given her history and current presentation. I have ordered HIV screen which she says she has had done in the past but it has been over a year apparently. We will have pulmonology see the patient but hopefully she can go home later today with further outpatient workup if studies are unrevealing. I have placed her on Rocephin and the Zithromax as she reports the azithromycin actually helped her recently as an outpatient. I have also initiated Diflucan. She does not tolerate doxycycline due to GI upset. (2) Substance abuse in remission Code(s): F19.11 - Other psychoactive substance abuse, in remission Status: Acute Plan: Continue outpatient medications and substance abuse counseling as well as group meetings of Narcotics Anonymous. We will be cautious in prescribing pain medication. It is noted that she did ask for pain medication several times during my exam and interview. Nurse was present during exam and interview. (3) Bipolar 1 disorder, depressed, partial remission Code(s): F31.75 - Bipolar disorder, in partial remission, most recent episode depressed Status: Acute Plan: Continue home medications. She is somewhat anxious and is desirous of discharge soon as possible given that she is a 15-year-old at home. Her 9-year-old daughter lives with her biological father. - Plan Code Status: full Discussed Condition With: Patient, ER provider and patient's nurse (1) Pneumonia Qualifiers: Pneumonia type: due to unspecified organism Laterality: bilateral Lung location: lower lobe of lung Qualified Code(s): J18.1 - Lobar pneumonia, unspecified organism
[2018-02-18 08:08] VITALS: O2SAT 95
[2018-02-18] MEDS: Heparin - SQ 10,000 UNITS/ML Vial SQ SCH (08:34)
[2018-02-18] MEDS ORDERED: Azithromycin 250 MG Tablet PO SCH (09:00)
[2018-02-18 09:14] VITALS: BP 100/63; PULSE 59; TEMP 98.9
--- NOTE | 2018-02-18 10:54 | P.PNADD ---
Addendum to Inpatient Note Reason for Addendum: Additional Documentation Additional information: Received call from pt's nurse that pt is leaving AMA. I encouraged her to stay earlier this AM to finish some testing and be seen by specialist. She seemed agreeable, but anxious. She is now not agreeable to staying. I don't strongly suspect active TB in this pt. She is encouraged to see her PCP within next 3-4 days and return if symptoms worsen. I will out of humanitarian concern place orders for abx to [facility] PO in hopes that they will help since zmax seemed to be quite effective last week.
--- NOTE | 2018-02-18 18:06 | ECG ---
Date Performed: 02/17/2018 Time Performed: 18:52:11 PTAGE: 48 years EKG: SINUS BRADYCARDIA SINCE PRIOR TRACING, THE DELAYED R-WAVE TRANSITION IS NEW, BUT THERE IS N O SIGNIFICANT SERIAL CHANGE. BORDERLINE ECG PREVIOUS TRACING : 01/26/2018 00.56 DOCTOR: Keke Montgomery Interpretating Date/Time 02/18/2018 18:05:12
[2018-02-18] MEDS ORDERED: traZODone 50 MG Tablet PO SCH (21:00)
[2018-02-22 13:58] LABS: TB1 Ag minus Nil Result 0.03 IU/mL
== END 2018-02-18 11:10 | disposition left against medical advice (07) ==
LOC: PHED 17:31 → PHEDA 17:31 → PH3 21:48 → PHEDA 22:03 → PH3 22:45
PROVIDERS: ADMIT Family Medicine; ATTEND Family Medicine

== ENCOUNTER 2018-02-18 19:21 | Observation (INO) ==
[2018-02-18] MEDS ORDERED: Morphine Inj 4 MG/ML Vial IV.PUSH ONE ×2 (20:02→23:15)
--- NOTE | 2018-02-18 20:06 | ED ---
HPI General Chief complaint: Medical Clearance Stated complaint: Medical Time Seen by Provider: 02/18/18 19:44 History of Present Illness HPI narrative: 48-year-old female with reported history of recurrent pneumonia, admitted to [facility] yesterday with complaints of chest pain and cough and a CT thorax showing infectious versus inflammatory changes with blood in tree type pattern, and left AMA this morning because she reportedly had to take care of her daughter, returns complaining of chest pain and cough. Records from the previous visit were reviewed, and shows that the patient was advised to stay for pulmonary evaluation and possible bronchoscopy. Upon leaving AMA she was prescribed azithromycin and Omnicef which she reportedly failed. Cough is nonproductive. No history of DVT or PE. No hemoptysis. No known history of cardiac disease. She reports burning chest pain that radiates from her anterior/inferior chest to her bilateral shoulders, burning in quality , worse with inspiration, moderate to severe. She denies fevers or chills. She smokes cigarettes daily. Related Data Home Medications Medication Instructions Recorded Confirmed escitalopram oxalate [Lexapro] 20 mg PO DAILY 01/25/18 02/18/18 trazodone 100 mg PO HS 01/25/18 02/18/18 aripiprazole 10 mg PO DAILY 02/18/18 02/18/18 gabapentin 1,200 mg PO TID 02/18/18 02/18/18 lamotrigine 100 mg PO DAILY 02/18/18 02/18/18 Previous Rx's Medication Instructions Recorded albuterol sulfate 2 inh INHALATION Q4H PRN #6.7 g 12/31/17 naproxen 500 mg PO Q12H PRN #14 tab 01/26/18 Allergies Allergy/AdvReac Type Severity Reaction Status Date / Time codeine AdvReac Severe N/V Verified 02/18/18 19:57 doxycycline AdvReac Intermediate Nausea/Vomi Verified 02/18/18 19:57 ting Review of Systems ROS: all other systems reviewed are negative PMFSH Social History Social History Substance History: No History of Abuse Second Hand Smoke Exposure: Yes Smoking Status: Current every day smoker Tobacco Type: Cigarettes Cigarettes Per Day: 20 Years Smoked: 30 Pack-Years: 30.00 How Often Do You Have a Drink Containing Alcohol: Never Recent Travel in [facility] within the Last 8 Weeks: No Recent Out of Country Travel within the Last 8 Weeks: No Exam Narrative Exam Narrative: GENERAL: Well-developed, well-nourished, awake, alert, no apparent distress. SKIN: Focused skin assessment warm/dry. HEAD: Atraumatic. Normocephalic. EYES: Pupils equal and round. No scleral icterus. No injection or drainage. ENT: No nasal bleeding or discharge. Mucous membranes pink and moist. NECK: Trachea midline. No JVD. CARDIOVASCULAR: Regular rate and rhythm. RESPIRATORY: No accessory muscle use. Clear to auscultation. Breath sounds equal bilaterally. GASTROINTESTINAL: Abdomen soft, non-tender, nondistended. MUSCULOSKELETAL: No obvious deformities. No clubbing. No cyanosis. No edema. NEUROLOGICAL: Awake and alert. No obvious cranial nerve deficits. Motor grossly within normal limits. Normal speech. PSYCHIATRIC: Appropriate mood and affect; insight and judgment normal. Course Initial Documented Vital Signs Temperature 98.6 F 02/18/18 19:35 Pulse Rate 72 02/18/18 19:35 Respiratory Rate 18 02/18/18 19:35 Blood Pressure 125/62 02/18/18 19:35 Pulse Oximetry 97 02/18/18 19:35 Last Documented Vital Signs Temperature 98.6 F 02/18/18 19:35 Pulse Rate 56 L 02/18/18 20:40 Respiratory Rate 16 02/18/18 20:40 Blood Pressure 109/73 02/18/18 20:40 Pulse Oximetry 97 02/18/18 20:40 Medical Decision Making MDM Narrative Medical decision making narrative: Labs, vitals, and imaging studies were reviewed and were reviewed with the patient. CBC and CMP are essentially unremarkable. Cardiac enzymes are negative. EKG shows no signs of ischemia. CT pulmonary angiogram: CONCLUSION:1. No pulmonary embolus.2. Lingular infiltrate slightly worse but remains mild.3. Mild small airway inflammatory type changes of both mid lungs unchanged. The patient was made aware of all findings. On reassessment she is sleeping comfortably. When awoke and she complains of ongoing pain. This is likely pleuritic type pain. Case discussed with [facility] hospitalist Dr. Casanova who is familiar with this patient as he admitted her yesterday at [facility]. The patient will be admitted to the [facility] service under Dr. Contreras for further treatment and evaluation of pneumonia with failed outpatient therapy, ongoing chest pain. Medical Screen Exam Complete: Yes Emergency Medical Condition: Yes Differential Diagnosis Differential Diagnosis: Pneumonia, PE, pleurisy, pleural effusion, ACS, recurrent pneumonia Medical Records Medical records reviewed: Yes I reviewed the patient's medical records. Lab Data Result diagrams: 02/18/18 20:38 02/18/18 20:38 POC Results POC Urine Results Negative Lab Results 02/18/18 02/18/18 Range/Units 20:38 20:38 WBC 5.6 (4.0-11.0) th/mm3 RBC 4.03 (4.00-5.30) mil/mm3 Hgb 13.3 (11.6-15.3) gm/dL Hct 39.0 (35.0-46.0) % MCV 96.7 (80.0-100.0) fL MCH 33.1 (27.0-34.0) pg MCHC 34.2 (32.0-36.0) % RDW 12.9 (11.6-17.2) % Plt Count 213 (150-450) th/mm3 MPV 8.8 (7.0-11.0) fL Neut % (Auto) 56.3 (16.0-70.0) % Lymph % (Auto) 29.3 (9.0-44.0) % [place] % (Auto) 10.4 H (0.0-8.0) % Eos % (Auto) 3.3 (0.0-4.0) % Baso % (Auto) 0.7 (0.0-2.0) % Neut # (Auto) 3.1 (1.8-7.7) th/mm3 Lymph # (Auto) 1.6 (1.0-4.8) th/mm3 [place] # (Auto) 0.6 (0.0-0.9) th/mm3 Eos # (Auto) 0.2 (0.0-0.4) th/mm3 Baso # (Auto) 0.0 (0.0-0.2) th/mm3 WBC Differential . Differential Comment Auto diff final Sodium 140 (136-145) meq/L Potassium 3.8 (3.5-5.1) meq/L Chloride 105 (98-107) meq/L Carbon Dioxide 27.3 (21.0-32.0) meq/L Anion Gap 8 (5-15) meq/L BUN 21 H (7-18) mg/dL Creatinine 0.86 (0.50-1.00) mg/dL Estimated GFR 70 L (>89) mL/min Random Glucose 76 (74-106) mg/dL Calcium 8.7 D (8.5-10.1) mg/dL Total Bilirubin 0.2 (0.2-1.0) mg/dL AST 38 H (15-37) U/L ALT 60 H (10-53) U/L Alkaline Phosphatase 130 H (45-117) U/L Total Creatine Kinase 132 (26-192) U/L CK-MB (CK-2) 1.8 (0.5-3.6) ng/mL Troponin I Less than 0.02 L (0.02-0.05) ng/mL Total Protein 7.0 D (6.4-8.2) g/dL Albumin 3.6 D (3.4-5.0) g/dL Imaging Data Radiologist's impression: Chest CTA 02/18/18 19:58 CONCLUSION: 1. No pulmonary embolus. 2. Lingular infiltrate slightly worse but remains mild. 3. Mild small airway inflammatory type changes of both mid lungs unchanged. Chest X-Ray 02/18/18 19:58 CONCLUSION: No evidence of acute cardiopulmonary disease. ECG Data Attestation: I personally reviewed and interpreted this ECG as follows: (Sinus, rate 53, normal axis, normal intervals, no acute ischemic abnormality.) Discharge Plan Discharge Disposition Patient Disposition: 30 Still Patient Discharge Condition Condition: Stable Discharge Details Diagnosis: Pneumonia, Atypical chest pain Physicians Team ED Provider: Kieran Hill Primary Care Provider: Javy Bruno Rxs /Orders / Referrals /Forms Prescriptions: No Action trazodone 50 mg Tablet 100 mg PO HS RF: 0 escitalopram oxalate [Lexapro] 20 mg Tablet 20 mg PO DAILY RF: 0 naproxen 500 mg tablet 500 mg PO Q12H PRN (Reason: pain) Qty: 14 RF: 0 gabapentin 600 mg tablet 1,200 mg PO TID RF: 0 lamotrigine 100 mg Tablet 100 mg PO DAILY RF: 0 aripiprazole 10 mg Tablet 10 mg PO DAILY RF: 0 albuterol sulfate 90 mcg/actuation HFA aerosol inhaler 2 inh INHALATION Q4H PRN (Reason: shortness of breath or wheezing) Qty: 6.7 RF: 0 Status ED Status: With Doctor
--- NOTE | 2018-02-18 20:25 | XR ---
EXAM DATE: 02/18/2018 7:58 PM EDT AGE/SEX: 48 years / Female INDICATIONS: Chest pain. CLINICAL DATA: This is the patient's initial encounter. Patient reports that signs and symptoms have been present for 1 day and indicates a pain score of 2/10. MEDICAL/SURGICAL HISTORY: None. None. COMPARISON: [facility], CHEST 2V PA&LAT, 01/25/2018. CT chest without contrast yesterday . FINDINGS: A single AP view of the chest demonstrates the lungs to be symmetrically aerated without evidence of mass, infiltrate or effusion. The cardiomediastinal contours are unremarkable. Osseous structures a re intact. CONCLUSION: No evidence of acute cardiopulmonary disease. Electronically signed by: Williams Hong MD 02/18/2018 8:24 PM EDT
[2018-02-18 21:07] LABS: Baso % (Auto) 0.7 % (0.0-2.0); Eos # (Auto) 0.2 th/mm3 (0.0-0.4); Eos % (Auto) 3.3 % (0.0-4.0); Hemoglobin 13.3 gm/dL (11.6-15.3); Lymph # (Auto) 1.6 th/mm3 (1.0-4.8); Lymph % (Auto) 29.3 % (9.0-44.0); Mean Corpuscular HGB Conc 34.2 % (32.0-36.0); Mean Corpuscular Hemoglobin 33.1 pg (27.0-34.0); Mean Corpuscular Volume 96.7 fL (80.0-100.0); Mean Platelet Volume 8.8 fL (7.0-11.0); Mono # (Auto) 0.6 th/mm3 (0.0-0.9); Mono % (Auto) 10.4 % (0.0-8.0); Neut # (Auto) 3.1 th/mm3 (1.8-7.7); Neut % (Auto) 56.3 % (16.0-70.0); Platelet Count 213 th/mm3 (150-450); Red Blood Count 4.03 mil/mm3 (4.00-5.30); Red Cell Distribution Width 12.9 % (11.6-17.2); White Blood Count 5.6 th/mm3 (4.0-11.0)
[2018-02-18 21:34] LABS: Alanine Aminotransferase 60 U/L (10-53); Alkaline Phosphatase 130 U/L (45-117); Creatine Kinase 132 U/L (26-192)
[2018-02-18 21:35] LABS: Albumin 3.6 g/dL (3.4-5.0); Anion Gap 8 meq/L (5-15); Aspartate Aminotransferase 38 U/L (15-37); Blood Urea Nitrogen 21 mg/dL (7-18); Calcium 8.7 mg/dL (8.5-10.1); Carbon Dioxide 27.3 meq/L (21.0-32.0); Chloride 105 meq/L (98-107); Glomerular Filtration Rate 70 mL/min (>89); Glucose,Random 76 mg/dL (74-106); Potassium 3.8 meq/L (3.5-5.1); Sodium 140 meq/L (136-145)
[2018-02-18 21:47] LABS: Creatine Kinase MB 1.8 ng/mL (0.5-3.6)
--- NOTE | 2018-02-18 22:12 | CT ---
EXAM DATE: 02/18/2018 9:42 PM EDT AGE/SEX: 48 years / Female INDICATIONS: Shortness of breath. CLINICAL DATA: This is the patient's initial encounter. Patient reports that signs and symptoms have been present for 1 day and indicates a pain score of 0/10. MEDICAL/SURGICAL HISTORY: . Pneumonia. Bronchitis. Breast augmentation. Tubal ligation. RADIATION DOSE: 8.23 CTDI (mGy) COMPARISON: [facility], CT CHEST W/O CONTRAST, 02/17/2018. . TECHNIQUE: Volumetric scanning was performed using a multi-row detector CT scanner during bolus infu michael of 75 ml Omnipaque 350 (iohexol) nonionic water-soluble contrast as a single exam dose. The leia a was post processed with a variety of visualization algorithms including full volume maximum intensi ty projection and sliding thin slab reformation. Using automated exposure control and adjustment of the mA and/or kV according to patient size, radiation dose was kept as low as reasonably achievable t o obtain optimal diagnostic quality images. DICOM format image data is available electronically for review and comparison. FINDINGS: There is no pulmonary embolus. Mild lingular consolidation again noted, slightly worse. Minimal tree-in-bud type inflammatory infilt rates laterally of both mid lungs are not significantly changed. There is no pleural effusion. No pne umothorax. Normal heart size. No lymphadenopathy. CONCLUSION: 1. No pulmonary embolus. 2. Lingular infiltrate slightly worse but remains mild. 3. Mild small airway inflammatory type changes of both mid lungs unchanged. Electronically signed by: Williams Hong MD 02/18/2018 10:11 PM EDT
[2018-02-18] MEDS ORDERED: Azithromycin Inj 500 MG in Sodium Chlor 0.9% Inj 250 ML IV.SIG ONE (22:20)
[2018-02-18] MEDS ORDERED: traZODone 50 MG Tablet PO SCH (22:45)
[2018-02-18] MEDS: MethylPREDNISolone Sod Succinate Inj 40 MG/ML Vial IV.PUSH SCH (23:32)
[2018-02-19 08:07] LABS: Alanine Aminotransferase 130 U/L (10-53); Albumin 3.2 g/dL (3.4-5.0); Alkaline Phosphatase 158 U/L (45-117); Anion Gap 8 meq/L (5-15); Aspartate Aminotransferase 126 U/L (15-37); Blood Urea Nitrogen 18 mg/dL (7-18); Calcium 7.9 mg/dL (8.5-10.1); Carbon Dioxide 28.4 meq/L (21.0-32.0); Chloride 107 meq/L (98-107); Glomerular Filtration Rate 81 mL/min (>89); Glucose,Random 137 mg/dL (74-106); Potassium 4.2 meq/L (3.5-5.1); Sodium 143 meq/L (136-145); Total Protein 6.5 g/dL (6.4-8.2)
[2018-02-19 08:20] VITALS: PULSE 49; RESP 22; O2SAT 94
--- NOTE | 2018-02-19 08:29 | P.HPIM ---
History of Present Illness Primary Care Physician: Javy Bruno History of Present Illness: Ms. Andres is a 48 y/o female with depression, chronic tobacco use with questionable history of COPD who was previously admitted to [facility] on 02/17/18 with complaints of pain to her lower chest and found to have pneumonia. Pt had been treated several times recently for pneumonia. She was seen at [facility] a little over 2 weeks ago and was discharged with Augmentin. She says she went to an outside hospital this last week and was told she had bilateral pneumonia and was discharged with azithromycin. She reports that the azithromycin actually helped but when her course was done symptoms returned. She says that she completed the antibiotics and her pain seems to be worse. She has had no hemoptysis or hematemesis. She denies any night sweats or recent weight loss. She had a Chest CT on 02/18/18 which noted trace lingular atelectasis and scarring, minimal infectious or inflammatory appearing tree-in-bud type parenchymal opacities of the bilateral mid lungs, and no lymphadenopathy demonstrated. Pt was treated with IV Azithromycin and Rocephin. She actually ended up leaving [place] on 02/18/18 due to an issue with her daughter. Pt was prescribed Azithromycin and Omnicef upon her leaving. Pt presented back to the ED at [facility] in the evening on 02/18/18 with the same complaints of lower chest pain and cough. She denies fever chills. She reports that the chest pain is burning in nature and radiates from her anterior/inferior chest to her bilateral shoulders. It is worse with inspiration. CTA thorax was performed in the ED and noted no pulmonary embolus, lingular infiltrate slightly worse but remains mild, and mild small airway inflammatory type changes of both mid lungs unchanged. She has remained a febrile with stable O2 sats on RA. Pt tested negative for HIV. TB testing is pending. Pulmonary Medicine has been consulted. 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 She has not traveled recently and has not been in contact with anyone with a known infectious disease specifically tuberculosis. It is noted the patient is in recovery from chronic opiate use. She had previously engaged in IV drug abuse but has not done that in several years. Her drug of choice for IV drugs was Dilaudid. Her last use was apparently over a year ago and she attends Narcotics Anonymous meetings daily. Medical History: Bipolar 1 disorder, depressed, partial remission Pneumonia Anemia Depression History of bleeding ulcers Hx of insomnia Hx of iron deficiency Surgical History: Mandibular surgery Breast augmentation Cholecystectomy Gastric bypass Hernia repair Tubal ligation Family History: Noncontributory Social History: (+)Tobacco use, 1 ppd cigarettes x 30 years No alcohol in several years but previously did drink heavily at times Has history of substance abuse and previously had been on various opiates and cocaine. She had also used IV Dilaudid in the past. She reportedly has been in recovery for over the last year and has not done any illicit drugs at that time. She does attend Narcotics Anonymous regularly. 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 - Diagnosis (1) Pneumonia (2) Substance abuse in remission (3) Atypical chest pain (4) Bipolar 1 disorder, depressed, partial remission Review of Systems Constitutional: Denies chills, Denies fever(s), Denies night sweats, Denies weight loss Eyes: Denies change in vision, Denies loss of vision Ears, Nose, Mouth, and Throat: Denies dizziness, Denies headache(s), Denies nosebleed, Denies nasal congestion, Denies neck pain, Denies sinus pressure, Denies sore throat Cardiovascular: Reports chest pain, Denies generalized swelling, Denies irregular heart rhythm, Denies lightheadedness, Denies shortness of breath Respiratory: Reports cough, Denies shortness of breath, Denies wheezing Gastrointestinal: Denies abdominal pain, Denies constipation, Denies loose stools, Denies nausea, Denies vomiting Genitourinary: Denies urinary incontinence, Denies urinary urgency Musculoskeletal: Denies back pain, Denies neck pain Skin/Breast: Denies wounds Neurologic: Denies dizziness, Denies headache(s), Denies seizure-like activity, Denies tingling/numbness/burning sensations, Denies weakness Psychiatric: Reports anxiety PMFSH - History History Provided By: Patient - Medical History Medical History: Medical History (Last Reviewed 03/04/18 @ 23:19 by Mignon Bruno MD) Bipolar 1 disorder, depressed, partial remission (Acute) Pneumonia (Acute) Anemia Depression History of bleeding ulcers Hx of insomnia Hx of iron deficiency - Surgical History Surgical History: Surgical History (Last Reviewed 03/04/18 @ 23:19 by Mignon Bruno MD) History of mandibular surgery Hx of breast augmentation Hx of cholecystectomy Hx of gastric bypass Hx of hernia repair Hx of tubal ligation - Family History Family History: Family History (Last Reviewed 03/04/18 @ 23:19 by Mignon Bruno MD) Mother COPD (chronic obstructive pulmonary disease) - Tobacco History Second Hand Smoke Exposure: Yes Tobacco Use In Past 30 Days: Yes Smoking Status: Current every day smoker Tobacco Type: Cigarettes Cigarettes Per Day: 20 Years Smoked: 30 - Alcohol History How Often Do You Have a Drink Containing Alcohol: Never - Substance Use History Substance History: No History of Abuse - Travel History Recent Travel in the [place] Within the Last 8 Weeks: No Recent Travel Out of the Country Within the Last 8 Weeks: No - Immunization History Tetanus Immunization: >5 Years Hx Influenza Vaccine This Season: No Medications and Allergies Allergies Allergy/AdvReac Type Severity Reaction Status Date / Time codeine AdvReac Severe N/V Verified 02/18/18 19:57 doxycycline AdvReac Intermediate Nausea/Vomi Verified 02/18/18 19:57 ting Home Medications Medication Instructions Recorded Confirmed Type escitalopram oxalate [Lexapro] 20 mg PO DAILY 01/25/18 03/04/18 History trazodone 100 mg PO HS 01/25/18 03/04/18 History aripiprazole 10 mg PO DAILY 02/18/18 03/04/18 History gabapentin 1,200 mg PO TID 02/18/18 03/04/18 History lamotrigine 100 mg PO DAILY 02/18/18 03/04/18 History Active Medications: Active Medications Albuterol (Duoneb Neb (Prn)) 1 ampul NEB Q4HR NEB PRN PRN Reason: wheeze, sob Aripiprazole (Abilify) 10 mg PO DAILY MARIMAR Escitalopram Oxalate (Lexapro) 20 mg PO DAILY MARIMAR Gabapentin (Neurontin) 1,200 mg PO TID MARIMAR Ceftriaxone Sodium 1,000 mg/ (Sodium Chloride) 100 mls @ 200 mls/hr IV.SIG Q24H MARIMAR Azithromycin 500 mg/ Sodium (Chloride) 250 mls @ 250 mls/hr IV.SIG Q24H MARIMAR Lamotrigine (Lamictal) 100 mg PO DAILY MARIMAR Methylprednisolone Sodium Succinate (Solumedrol Inj) 40 mg IV.PUSH Q12HR MARIMAR Last Admin: 02/18/18 23:32 Dose: 40 mg Sodium Chloride (Ns Flush) 2 ml IV.FLUSH UNSCH PRN PRN Reason: FLUSH AFTER USING IV ACCESS Last Admin: 02/18/18 20:50 Dose: 2 ml Tramadol HCl (Ultram) 100 mg PO Q6H PRN PRN Reason: pain level 3-10 Trazodone HCl (Desyrel) 100 mg PO HS MARIMAR Last Admin: 02/19/18 00:18 Dose: 100 mg Exam Vital signs: Vital Signs 02/18/18 19:35 02/18/18 20:06 02/18/18 20:40 Temperature 98.6 F Pulse Rate 72 56 L Respiratory Rate 18 16 Blood Pressure 125/62 109/73 Pulse Oximetry 97 97 97 02/18/18 23:33 02/19/18 00:00 02/19/18 03:51 Temperature 98.1 F 98.2 F Pulse Rate 55 L 57 L 46 L Respiratory Rate 13 16 16 Blood Pressure 121/58 L 91/50 L 89/50 L Pulse Oximetry 96 95 93 L Intake & Output 02/18/18 02/19/18 02/19/18 18:59 06:59 18:59 Intake Total 350 / 350 Balance 350 / 350 Weight 58.97 kg Intake: IV 350 / 350 Azithromycin Inj 500 MG In NS 250 / 250 Inj 250 ML @ 250 mls/hr IV.SIG ONCE ONE Rx#:[id number] Rocephin Inj 1,000 MG In NS Inj 100 / 100 100 ML @ 200 mls/hr IV.SIG ONCE ONE Rx#:[id number] Other: Date of Last Bowel Movement 02/18/18 Weight On Admission 58.967 kg Narrative: GENERAL: NAD, AAOx3 SKIN: Warm and dry. HEENT: Atraumatic. Normocephalic. Pupils equal and round. No scleral icterus. No injection or drainage. No nasal bleeding or discharge. Mucous membranes pink and moist. NECK: Trachea midline. No JVD. CARDIO: Regular RESP: No accessory muscle use. Clear to auscultation. Breath sounds equal bilaterally. ABD: +BS, soft, non-tender, nondistended. Hepatic and splenic margins not palpable. EXT: Extremities without clubbing, cyanosis, or edema. No obvious deformities. NEURO: Awake and alert. No obvious cranial nerve deficits. Motor grossly within normal limits. Five out of 5 muscle strength in the arms and legs. Normal speech. PSYCH: Appropriate mood and affect; insight and judgment normal. Results - Labs CBC & Chem 7: 02/18/18 20:38 02/19/18 06:42 Labs: Short CBC 02/18/18 Range/Units 20:38 WBC 5.6 (4.0-11.0) th/mm3 Hgb 13.3 (11.6-15.3) gm/dL Hct 39.0 (35.0-46.0) % Plt Count 213 (150-450) th/mm3 BMP 02/18/18 20:38 Sodium 140 Potassium 3.8 Chloride 105 Carbon Dioxide 27.3 BUN 21 H Creatinine 0.86 Calcium 8.7 D Cardiac Enzymes 02/18/18 Range/Units 20:38 Total Creatine Kinase 132 (26-192) U/L CK-MB (CK-2) 1.8 (0.5-3.6) ng/mL Troponin I Less than 0.02 L (0.02-0.05) ng/mL Liver Function 02/18/18 Range/Units 20:38 Total Bilirubin 0.2 (0.2-1.0) mg/dL AST 38 H (15-37) U/L ALT 60 H (10-53) U/L Alkaline Phosphatase 130 H (45-117) U/L Albumin 3.6 D (3.4-5.0) g/dL - Imaging Impressions Chest CTA 02/18/18 19:58 CONCLUSION: 1. No pulmonary embolus. 2. Lingular infiltrate slightly worse but remains mild. 3. Mild small airway inflammatory type changes of both mid lungs unchanged. Chest X-Ray 02/18/18 19:58 CONCLUSION: No evidence of acute cardiopulmonary disease. Caprini VTE Risk Assessment Caprini VTE Risk Assessment: No/Low Risk (score <= 1) Caprini Risk Assessment Model: Point Value = 1 Point Value = 2 Point Value = 3 Point Value = 5 Age 41-60 Minor surgery BMI > 25 kg/m2 Swollen legs Varicose veins or History of unexplained or recurrent spontaneous Oral contraceptives or hormone replacement Sepsis (< 1 month) Serious lung disease, including pneumonia (< 1 month) Abnormal pulmonary function Acute myocardial infarction Congestive heart failure (< 1 month) History of inflammatory bowel disease Medical patient at bed rest Age 61-74 Arthroscopic surgery Major open surgery (> 45 min) Laparoscopic surgery (> 45 min) Malignancy Confined to bed (> 72 hours) Immobilizing plaster cast Central venous access Age >= 75 History of VTE Family history of VTE Factor V Leiden Prothrombin [id number] Lupus anticoagulant Anticardiolipin antibodies Elevated serum homocysteine Heparin-induced thrombocytopenia Other congenital or acquired thrombophilia Stroke (< 1 month) Elective arthroplasty Hip, pelvis, or leg fracture Acute spinal cord injury (< 1 month) Prophylaxis Regimen: Total Risk Factor Score Risk Level Prophylaxis Regimen 0-1 Low Early ambulation 2 Moderate Order ONE of the following: *Sequential Compression Device (SCD) *Heparin 5000 units SQ BID 3-4 Higher Order ONE of the following medications: *Heparin 5000 units SQ TID *Enoxaparin/Lovenox 40 mg SQ daily (WT < 150 kg, CrCl > 30 mL/min) *Enoxaparin/Lovenox 30 mg SQ daily (WT < 150 kg, CrCl > 10-29 mL/min) *Enoxaparin/Lovenox 30 mg SQ BID (WT < 150 kg, CrCl > 30 mL/min) AND/OR *Sequential Compression Device (SCD) 5 or more Highest Order ONE of the following medications: *Heparin 5000 units SQ TID (Preferred with Epidurals) *Enoxaparin/Lovenox 40 mg SQ daily (WT < 150 kg, CrCl > 30 mL/min) *Enoxaparin/Lovenox 30 mg SQ daily (WT < 150 kg, CrCl > 10-29 mL/min) *Enoxaparin/Lovenox 30 mg SQ BID (WT < 150 kg, CrCl > 30 mL/min) AND *Sequential Compression Device (SCD) Assessment and Plan - Assessment (1) Pneumonia Code(s): J18.9 - Pneumonia, unspecified organism Status: Acute Plan: Pneumonia - Pt is a 48 y/o female with depression, chronic tobacco use with questionable history of COPD who was previously admitted to [facility] on 02/17/18 with complaints of pain to her lower chest and found to have pneumonia. Pt had been treated several times recently for pneumonia. She was seen at [facility] a little over 2 weeks ago and was discharged with Augmentin. She says she went to an outside hospital last week and was told she had bilateral pneumonia and was discharged with azithromycin. She reports that the azithromycin actually helped but when her course was done symptoms returned. She says that she completed the antibiotics and her pain seems to be worse. She had a Chest CT on 02/18/18 which noted trace lingular atelectasis and scarring, minimal infectious or inflammatory appearing tree-in-bud type parenchymal opacities of the bilateral mid lungs, and no lymphadenopathy demonstrated. Pt was treated with IV Azithromycin and Rocephin. She actually ended up leaving [place] on 02/18/18 due to an issue with her daughter. Pt was prescribed Azithromycin and Omnicef upon her leaving and picked up the medication but did not start taking it. Pt presented back to the ED at [facility] in the evening on 02/18/18 with the same complaints of lower chest pain and cough. - CTA thorax (02/18/18) --> No pulmonary embolus, lingular infiltrate slightly worse but remains mild, and mild small airway inflammatory type changes of both mid lungs unchanged. - She has remained a febrile with stable O2 sats on RA. - Pt tested negative for HIV. - TB testing is pending. - Blood cultures (02/18/18) are pending - Pulmonary Medicine has been consulted. - Pt to be continued on Azithromycin and Rocephin for now - Duonebs - She has Ultram PRN ordered for pain - Pt again expresses concerns about staying overnight due to not having anyone else to watch her daughter at home. She wants to be discharged later today. - Pt reports that she does not have great followup with her PCP so I expressed the importance of establishing with a Flight Hostess so she will have a physician to followup with upon discharge. She is agreeable to staying to see Dr. Bell today. Hx of narcotic abuse - Pt is noted to be in recovery from chronic opiate use. She had previously engaged in IV drug abuse but has not done that in several years. Her drug of choice for IV drugs was Dilaudid. Her last use was apparently over a year ago and she attends Narcotics Anonymous meetings daily. Elevated LFTs - Pt with noted elevated LFTs, etiology unclear. - Pt does not want to stay to pursue further workup - She will have repeat CMP in 1 week with results to her PCP and further workup per her PCP. The exam, history, and the medical decision-making described in the above note were completed with the assistance of the mid-level provider. I reviewed and agree with the findings presented. I attest that I had a [id number] encounter with the patient on the same day, and personally performed and documented my assessment and findings in the medical record. pneumonia. pt left [place] yesterday [place]. came back and now feeling better again. 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 she has abx scripts at home. small dose ultram given which helped with the pain. The exam, history, and the medical decision-making described in the above note were completed with the assistance of the mid-level provider. I reviewed and agree with the findings presented. I attest that I had a [id number] encounter with the patient on the same day, and personally performed and documented my assessment and findings in the medical record. (2) Substance abuse in remission Code(s): F19.11 - Other psychoactive substance abuse, in remission Status: Acute (3) Atypical chest pain Code(s): R07.89 - Other chest pain Status: Acute (4) Bipolar 1 disorder, depressed, partial remission Code(s): F31.75 - Bipolar disorder, in partial remission, most recent episode depressed Status: Acute H&P: Quality - VTE Deep Vein Thrombosis/Pulmonary Embolism Present on Admission: No (1) Pneumonia Qualifiers: Pneumonia type: due to unspecified organism Laterality: bilateral Lung location: unspecified part of lung Qualified Code(s): J18.9 - Pneumonia, unspecified organism
[2018-02-19] MEDS: Gabapentin 400 MG Capsule PO SCH ×2 (08:46→14:14)
[2018-02-19] MEDS: MethylPREDNISolone Sod Succinate Inj 40 MG/ML Vial IV.PUSH SCH (08:47)
[2018-02-19] MEDS ORDERED: lamoTRIgine 100 MG Tablet PO SCH (09:00)
[2018-02-19] MEDS ORDERED: ARIPiprazole 10 MG Tablet PO SCH (09:00)
--- NOTE | 2018-02-19 12:18 | ECG ---
Date Performed: 02/18/2018 Time Performed: 20:44:34 PTAGE: 48 years EKG: SINUS BRADYCARDIA BORDERLINE ECG PREVIOUS TRACING : 02/17/2018 18.52 Since the previous tracing, no significant change noted DOCTOR: Teofilo Marie Interpretating Date/Time 02/19/2018 12:17:47
[2018-02-19 12:56] VITALS: BP 106/50; TEMP 98.1
[2018-02-19] MEDS ORDERED: guaiFENesin 600 MG ER Tablet PO SCH (13:30)
[2018-02-19] MEDS ORDERED: Azithromycin Inj 500 MG in Sodium Chlor 0.9% Inj 250 ML IV.SIG SCH (22:00)
== END 2018-02-19 15:41 | disposition home or self-care (01) ==
LOC: NEPC 19:21 → NEDA 19:21 → NEPHCDU 02-19 00:15
PROVIDERS: ADMIT Hospitalist; ATTEND Hospitalist